=== PATIENT | male | born 1945 | race Caucasian/White ===

== ENCOUNTER 2023-03-13 06:50 | Day surgery (SDC) | payer BC ==
[~2023-03-13] VITALS: Ht 177.8 cm; Wt 91.2 kg
[~2023-03-13 06:50] MED LIST: CITRTAB15 PO; ECOT81TA5 PO; FARX1TAB3 PO; FENO45CA3 PO; GLIM1TAB4 PO; JARD1TAB3 PO; LISI10TA22 PO; METF500T13 PO; MULT-90 PO; NS 1,000 ML IV ONE; SIMV10TA21 PO
[2023-03-13] MEDS ORDERED: propofoL 200 MG/20 ML VIAL As Ordered ONE ×2 (08:15→08:31)
[2023-03-13 08:46] VITALS: TEMP 97.5
[2023-03-13 09:06] VITALS: BP 175/79; O2SAT 95
== END 2023-03-13 09:15 | disposition home or self-care (01) ==
LOC: M OPP 06:50
PROVIDERS: ATTEND Internal Medicine Gastroenterology
DX: K63.5 Polyp of colon (principal); K57.30 Diverticulosis of large intestine without perforation or abscess without bleeding; K64.4 Residual hemorrhoidal skin tags; K64.8 Other hemorrhoids; R19.5 Other fecal abnormalities; Z79.02 Long term (current) use of antithrombotics/antiplatelets; Z79.82 Long term (current) use of aspirin; Z79.84 Long term (current) use of oral hypoglycemic drugs; Z79.899 Other long term (current) drug therapy